=== PATIENT | female | born 2000 | race Two or more races ===

== ENCOUNTER 2025-02-11 12:08 | Emergency (ER) | payer BC ==
[~2025-02-11] VITALS: Ht 172.7 cm; Wt 51.0 kg
[2025-02-11 12:11] VITALS: O2SAT 98
[2025-02-11 12:59] LABS: BASOPHILS % 0.9 % (0.0-2.0); EOSINOPHILS % 0.4 % (0.0-5.0); HEMATOCRIT. 42.2 % (36.0-48.0); HEMOGLOBIN. 13.5 g/dL (12.0-16.0); LYMPHOCYTES % 36.7 % (20.0-50.0); MEAN PLATELET VOLUME 7.6 fl (7.4-10.4); MONOCYTES % 7.3 % (2.0-8.0); NEUTROPHILS % 54.7 % (40.0-76.0); PLATELET 354 x1000/uL (130-400); RED BLOOD CELL COUNT 5.42 mill/uL (4.2-5.4); RED CELL DISTRIBUTION WIDTH 15.7 % (11.6-14.6)
[2025-02-11 13:16] LABS: CREATININE 0.8 mg/dL (0.6-1.0); UREA NITROGEN BLOOD 9 mg/dL (9-23)
[2025-02-11 13:18] LABS: ASPARTATE AMINOTRANSFERASE 17 IU/L (<34); BILIRUBIN TOTAL 0.7 mg/dL (0.1-1.0); PROTEIN TOTAL 8.1 g/dL (6.0-8.3)
[2025-02-11 13:22] LABS: COLOR URINE PALE YELLOW (YELLOW)
[2025-02-11 13:23] LABS: CLARITY URINE CLEAR (CLEAR); GLUCOSE URINE NEGATIVE (NEGATIVE); KETONES URINE NEGATIVE (NEGATIVE); LEUKOCYTE ESTERASE URINE NEGATIVE (NEGATIVE); NITRITE URINE NEGATIVE (NEGATIVE); OCCULT BLOOD URINE NEGATIVE (NEGATIVE); PH URINE 6.5 (4.5-8.0); PROTEIN URINE NEGATIVE (NEGATIVE); SPECIFIC GRAVITY URINE <1.005 (1.005-1.030); UROBILINOGEN URINE 0.2 E.U./dL (0.2-1.0)
[2025-02-11 13:26] LABS: HCG SCREEN NEGATIVE
[2025-02-11] MEDS: MECLIZINE 25MG TABLET PO ONE (13:26)
[2025-02-11] MEDS ORDERED: MECL-299 MT (14:56)
[2025-02-11 15:37] VITALS: BP 120/80; PULSE 82; RESP 16; TEMP 37.2; O2SAT 98
== END 2025-02-11 15:41 | disposition home or self-care (01) ==
LOC: ER 12:08
DX: H81.10 Benign paroxysmal vertigo, unspecified ear (principal); R06.02 Shortness of breath; E11.9 Type 2 diabetes mellitus without complications; Z88.0 Allergy status to penicillin
CPT/HCPCS: 99284; 80053; 81003; 81025; 84703; 85025; 36415; 93005; J8597